=== PATIENT | male | born 1980 | race Caucasian/White ===

== ENCOUNTER 2020-04-22 05:27 | Emergency (ER) | payer OTHER, SELFPAY ==
[2020-04-22] VITALS (52 sets, daily range): BP systolic 130–187; BP diastolic 64–111; PULSE 76–111; RESP 3–26; TEMP 36.6; O2SAT 94–99; BMI 37.3
--- NOTE | 2020-04-22 05:27 | ED_ITS ---
HPI - Chest Pain <Abhijit Garcia DO - Last Filed: 04/22/20 20:35> General Chief Complaint: Chest Pain Stated Complaint: discomfort in chest Time Seen by Provider: 04/22/20 05:27 Source: patient Mode of arrival: Ambulatory Limitations: no limitations History of Present Illness HPI narrative: 39-year-old male smoker with history of hypertension presents with a chief complaint of about 2 hours of retrosternal chest discomfort and burning their reminds him of prior episodes reflux. He took some Zantac at home and it did not help, and normally would so he presents here for further evaluati on given his concern for his heart. He denies any exertional symptoms. He denies radiation of symptoms nor provocation or palliation. . He denies any associated symptoms such as dizziness, weakness or lightheadedness. He has no nausea, vomiting or diaphoresis. He denies recent travel or history of blood clot. MD complaint: chest pain Onset (ago): hour(s) Duration: intermittent Onset: during rest Pain location: substernal Severity: moderate Severity scale (1-10): 6 Quality: sharp Pain radiation: none Relieving factors: nothing Exacerbating factors: nothing Treatments prior to arrival chest pain: none Related Data Previous Rx's Medication Instructions Recorded triamcinolone acetonide 0 gm TOPICAL BID #1 tube 05/28/18 losartan 25 mg tablet 25 mg PO DAILY #90 tab 11/08/19 albuterol sulfate 90 mcg/actuation 2 puff INHALATION Q4HP PRN #1 11/28/19 aerosol inhaler inhalation Allergies Allergy/AdvReac Type Severity Reaction Status Date / Time No Known Drug Allergies Allergy Unverified 07/19/19 11:49 Review of Systems <Abhijit Garcia DO - Last Filed: 04/22/20 20:35> Constitutional Constitutional: Denies chills, Denies fatigue, Denies fever(s), Denies frequent falls, Denies lethargy and Denies weakness Eyes Eyes: Denies change in vision, Denies eye discharge, Denies irritation and Denies loss of vision ENT Ears, Nose, Mouth, and Throat: Denies change in voice, Denies dizziness, Denies neck pain, Denies sore throat and Denies throat swelling Cardiovascular Cardiovascular: Reports chest pain, Denies irregular heart rhythm, Denies lightheadedness, Denies palpitations, Denies dyspnea, Denies dyspnea on exertion and Denies orthopnea Respiratory Respiratory: Denies cough, Denies dyspnea, Denies dyspnea on exertion and Denies wheezing Gastrointestinal Gastrointestinal: Denies abdominal pain, Denies change in bowel habits, Denies diarrhea, Denies nausea and Denies vomiting Musculoskeletal Musculoskeletal: Denies neck pain and Denies numbness Integumentary/Breasts Skin/Breast: Denies pruritus, Denies erythema, Denies rash and Denies wounds Neurologic Neurologic: Denies behavioral changes, Denies confusion, Denies dizziness, Denies frequent falls, Denies loss of vision, Denies numbness and Denies weakness Psychiatric Psychiatric: Denies anxiety, Denies behavioral changes, Denies confusion, Denies depression, Denies homicidal ideation and Denies suicidal ideation Endocrine Endocrine: Denies fatigue, Denies flushing and Denies palpitations Hematologic/Lymphatic Hematologic/Lymphatic: Denies easy bruising Allergic/Immunologic Allergic/Immunologic: Denies urticaria, Denies throat swelling and Denies wheezing Patient History <Abhijit Garcia DO - Last Filed: 04/22/20 20:35> Medical History Mild persistent asthma (Acute) Social History Smoking Status: Current some day smoker Smoking Status: Current some day smoker Exam <Abhijit Garcia DO - Last Filed: 04/22/20 20:35> Narrative Exam Narrative: GENERAL: [39] year old patient appears stated age. Well- nourished, well-developed patient, in mild distress. HEAD: Atraumatic. Normocephalic. EYES: Pupils equal round and reactive. Extraocular motions intact. No scleral icterus. No injection or drainage. ENT: Nose without bleeding, purulent drainage. Throat without erythema, tonsillar hypertrophy or exudate. Airway patent. NECK: Trachea midline. Non tender CARDIOVASCULAR: Regular rate and rhythm without murmurs, gallops, or rubs. RESPIRATORY: Clear to auscultation. Breath sounds equal bilaterally. No wheezes, rales, or rhonchi. GASTROINTESTINAL: Abdomen soft, non-tender, nondistended. EXTREMITIES: No edema or joint tenderness. BACK: Nontender without deformity or crepitance. No flank tenderness. NEURO: AOx3. SKIN: No rash or erythema of visible areas Initial Vital Signs Initial Vital Signs: Vital Signs Temperature 97.8 F 04/22/20 05:35 Pulse Rate 111 H 04/22/20 05:35 Respiratory Rate 04/22/20 05:35 Blood Pressure 178/111 H 04/22/20 05:35 Pulse Oximetry 99 04/22/20 05:35 <Liz Basilio DO - Last Filed: 04/22/20 14:45> Initial Vital Signs Initial Vital Signs: Vital Signs Temperature 97.8 F 04/22/20 05:35 Pulse Rate 111 H 04/22/20 05:35 Respiratory Rate 04/22/20 05:35 Blood Pressure 178/111 H 04/22/20 05:35 Pulse Oximetry 99 04/22/20 05:35 Course <Abhijit Garcia DO - Last Filed: 04/22/20 20:35> Course Course Narrative: patient signed out to Dr. Basilio for final disposition, admission here vs. transfer if second troponin is elevated or clinical picture worsens Orders Ordered: Discontinued Medications Aspirin (Aspirin Chew) 324 mg PO NOW ONE Stop: 04/22/20 05:43 Last Admin: 04/22/20 05:47 Dose: 324 mg Documented by: KRIS Heparin Sodium (Porcine) (Heparin) 5,000 unit IV NOW ONE Stop: 04/22/20 08:47 Last Admin: 04/22/20 09:08 Dose: 5,000 unit Documented by: JÚNIOR Sodium Chloride (Normal Saline 0.9%) 1,000 mls @ 150 mls/hr IV CONT EDDIE Last Infusion: 04/22/20 14:25 Dose: 0 mls/hr Documented by: Admin: 04/22/20 05:48 Dose: 150 mls/hr Documented by: KRIS Heparin Sodium/Dextrose (Heparin Drip) 25,000 unit in 500 mls @ 20 mls/hr IV CONT EDDIE; Protocol Last Titration: 04/22/20 14:25 Dose: 0 units/hr, 0 mls/hr Documented by: Admin: 04/22/20 09:09 Dose: 1,000 units/hr, 20 mls/hr Documented by: JÚNIOR Nitroglycerin (Nitroglycerin) 50 mg in 250 mls @ 1.5 mls/hr IV TITRATE EDDIE; Protocol Last Titration: 04/22/20 14:25 Dose: 0 mcg/min, 0 mls/hr Documented by: Titration: 04/22/20 14:01 Dose: 50 mcg/min, 15 mls/hr Documented by: Titration: 04/22/20 13:50 Dose: 40 mcg/min, 12 mls/hr Documented by: Titration: 04/22/20 13:40 Dose: 35 mcg/min, 10.5 mls/hr Documented by: Titration: 04/22/20 13:20 Dose: 30 mcg/min, 9 mls/hr Documented by: Titration: 04/22/20 13:10 Dose: 25 mcg/min, 7.5 mls/hr Documented by: Titration: 04/22/20 13:05 Dose: 20 mcg/min, 6 mls/hr Documented by: Titration: 04/22/20 12:55 Dose: 15 mcg/min, 4.5 mls/hr Documented by: Titration: 04/22/20 12:40 Dose: 10 mcg/min, 3 mls/hr Documented by: Admin: 04/22/20 12:09 Dose: 5 mcg/min, 1.5 mls/hr Documented by: GLEN Metoprolol Tartrate (Lopressor) 5 mg IV Q5M EDDIE Stop: 04/22/20 06:41 Last Admin: 04/22/20 06:45 Dose: 5 mg Documented by: Admin: 04/22/20 06:40 Dose: 5 mg Documented by: Admin: 04/22/20 06:36 Dose: 5 mg Documented by: KRIS Nitroglycerin (Nitrostat) 0.4 mg SL [id number] PRN PRN Reason: Chest Pain Last Admin: 04/22/20 06:02 Dose: 0.4 mg Documented by: Admin: 04/22/20 05:57 Dose: 0.4 mg Documented by: Admin: 04/22/20 05:48 Dose: 0.4 mg Documented by: KRIS Nitroglycerin (Nitrostat) 0.4 mg SL NOW ONE Stop: 04/22/20 08:51 Last Admin: 04/22/20 09:09 Dose: 0.4 mg Documented by: BTONER Reevaluation(s) Reevaluation #1: pain down to 1/10 after 1 nitro Reevaluation #2: pain now gone Time: 06:56 Consultations Consultation #1: discussed with Dr. Reeves. Requests patient be kept here and ruled out. Trend enzymes, echo today. Stress tomorrow. Vital Signs Vital signs: Vital Signs - 8 hr 04/22/20 12:35 04/22/20 12:40 04/22/20 12:45 Pulse Rate 85 92 H 86 Respiratory Rate 11 L 13 17 Blood Pressure 171/87 H 179/94 H 169/87 H Pulse Oximetry 96 96 95 04/22/20 12:50 04/22/20 12:55 04/22/20 13:00 Pulse Rate 79 77 79 Respiratory Rate 18 16 16 Blood Pressure 167/88 H 173/83 H 178/88 H Pulse Oximetry 95 94 95 04/22/20 13:05 04/22/20 13:10 04/22/20 13:15 Pulse Rate 76 79 94 H Respiratory Rate 17 17 16 Blood Pressure 173/86 H 176/86 H 164/82 H Pulse Oximetry 94 95 95 04/22/20 13:22 04/22/20 13:26 04/22/20 13:30 Pulse Rate 97 H 96 H 89 Respiratory Rate 25 H 12 18 Blood Pressure 185/91 H 154/84 H 154/80 H Pulse Oximetry 97 94 97 04/22/20 13:35 04/22/20 13:40 04/22/20 13:45 Pulse Rate 90 85 86 Respiratory Rate 10 L 12 3 L Blood Pressure 151/74 H 146/68 H 144/70 H Pulse Oximetry 95 95 96 04/22/20 13:50 04/22/20 13:55 04/22/20 14:00 Pulse Rate 92 H 99 H 91 H Respiratory Rate 7 L 15 9 L Blood Pressure 141/64 H 146/78 H 150/70 H Pulse Oximetry 96 96 96 <Liz Basilio DO - Last Filed: 04/22/20 14:45> Orders Ordered: Discontinued Medications Aspirin (Aspirin Chew) 324 mg PO NOW ONE Stop: 04/22/20 05:43 Last Admin: 04/22/20 05:47 Dose: 324 mg Documented by: KRIS Heparin Sodium (Porcine) (Heparin) 5,000 unit IV NOW ONE Stop: 04/22/20 08:47 Last Admin: 04/22/20 09:08 Dose: 5,000 unit Documented by: JÚNIOR Sodium Chloride (Normal Saline 0.9%) 1,000 mls @ 150 mls/hr IV CONT EDDIE Last Infusion: 04/22/20 14:25 Dose: 0 mls/hr Documented by: Admin: 04/22/20 05:48 Dose: 150 mls/hr Documented by: KRIS Heparin Sodium/Dextrose (Heparin Drip) 25,000 unit in 500 mls @ 20 mls/hr IV CONT EDDIE; Protocol Last Titration: 04/22/20 14:25 Dose: 0 units/hr, 0 mls/hr Documented by: Admin: 04/22/20 09:09 Dose: 1,000 units/hr, 20 mls/hr Documented by: JÚNIOR Nitroglycerin (Nitroglycerin) 50 mg in 250 mls @ 1.5 mls/hr IV TITRATE EDDIE; Protocol Last Titration: 04/22/20 14:25 Dose: 0 mcg/min, 0 mls/hr Documented by: Titration: 04/22/20 14:01 Dose: 50 mcg/min, 15 mls/hr Documented by: Titration: 04/22/20 13:50 Dose: 40 mcg/min, 12 mls/hr Documented by: URIELCHECLAUDIA Titration: 04/22/20 13:40 Dose: 35 mcg/min, 10.5 mls/hr Documented by: URIELCHECLAUDIA Titration: 04/22/20 13:20 Dose: 30 mcg/min, 9 mls/hr Documented by: Titration: 04/22/20 13:10 Dose: 25 mcg/min, 7.5 mls/hr Documented by: URIELCHECLAUDIA Titration: 04/22/20 13:05 Dose: 20 mcg/min, 6 mls/hr Documented by: Titration: 04/22/20 12:55 Dose: 15 mcg/min, 4.5 mls/hr Documented by: URIELCHECLAUDIA Titration: 04/22/20 12:40 Dose: 10 mcg/min, 3 mls/hr Documented by: Admin: 04/22/20 12:09 Dose: 5 mcg/min, 1.5 mls/hr Documented by: GLEN Metoprolol Tartrate (Lopressor) 5 mg IV Q5M EDDIE Stop: 04/22/20 06:41 Last Admin: 04/22/20 06:45 Dose: 5 mg Documented by: Admin: 04/22/20 06:40 Dose: 5 mg Documented by: Admin: 04/22/20 06:36 Dose: 5 mg Documented by: KRIS Nitroglycerin (Nitrostat) 0.4 mg SL [id number] PRN PRN Reason: Chest Pain Last Admin: 04/22/20 06:02 Dose: 0.4 mg Documented by: Admin: 04/22/20 05:57 Dose: 0.4 mg Documented by: Admin: 04/22/20 05:48 Dose: 0.4 mg Documented by: KRIS Nitroglycerin (Nitrostat) 0.4 mg SL NOW ONE Stop: 04/22/20 08:51 Last Admin: 04/22/20 09:09 Dose: 0.4 mg Documented by: JÚNIOR Vital Signs Vital signs: Vital Signs - 8 hr 04/22/20 12:35 04/22/20 12:40 04/22/20 12:45 Pulse Rate 85 92 H 86 Respiratory Rate 11 L 13 17 Blood Pressure 171/87 H 179/94 H 169/87 H Pulse Oximetry 96 96 95 04/22/20 12:50 04/22/20 12:55 04/22/20 13:00 Pulse Rate 79 77 79 Respiratory Rate 18 16 16 Blood Pressure 167/88 H 173/83 H 178/88 H Pulse Oximetry 95 94 95 04/22/20 13:05 04/22/20 13:10 04/22/20 13:15 Pulse Rate 76 79 94 H Respiratory Rate 17 17 16 Blood Pressure 173/86 H 176/86 H 164/82 H Pulse Oximetry 94 95 95 04/22/20 13:22 04/22/20 13:26 04/22/20 13:30 Pulse Rate 97 H 96 H 89 Respiratory Rate 25 H 12 18 Blood Pressure 185/91 H 154/84 H 154/80 H Pulse Oximetry 97 94 97 04/22/20 13:35 04/22/20 13:40 04/22/20 13:45 Pulse Rate 90 85 86 Respiratory Rate 10 L 12 3 L Blood Pressure 151/74 H 146/68 H 144/70 H Pulse Oximetry 95 95 96 04/22/20 13:50 04/22/20 13:55 04/22/20 14:00 Pulse Rate 92 H 99 H 91 H Respiratory Rate 7 L 15 9 L Blood Pressure 141/64 H 146/78 H 150/70 H Pulse Oximetry 96 96 96 MDM - Chest Pain <Abhijit Garcia, DO - Last Filed: 04/22/20 20:35> Lab Data Result diagrams: 04/22/20 05:40 04/22/20 05:40 Labs: Lab Results 04/22/20 04/22/20 04/22/20 Range/Units 05:40 05:40 05:40 WBC 10.7 (4.5-11.0) X10^3/uL RBC 4.64 (4.5-5.9) X10^6/uL Hgb 15.8 (13.5-17.5) g/dL Hct 46.3 (41-53) % MCV 99.8 (80-100) fL MCH 34.0 (26-34) PG MCHC 34.1 (30-36) % RDW 15.1 H (11.6-14.8) % Plt Count 334 (150-400) X10^3/uL Neut % (Auto) 79.0 H (50-75) % Lymph % (Auto) 14.0 L (25-40) % [place]pherson % (Auto) 5.1 (3-14) % Eos % (Auto) 1.1 L (2-4) % Baso % (Auto) 0.8 (0-2) % Neut # (Auto) 8500 H (6627-2116) /uL Lymph # (Auto) 1500 (4048-6898) /uL [place] # (Auto) 500 (0-900) /uL Eos # (Auto) 100 (0-450) /uL Baso # (Auto) 100 (0-100) /uL D-Dimer < 200 (<230) ng/mL Sodium 137 (137-145) mmol/L Potassium 3.9 (3.4-5.1) mmol/L Chloride 99 (98-107) mmol/L Carbon Dioxide 29 (22-32) mmol/L BUN 20 (9-20) mg/dL Creatinine 0.90 (0.66-1.25) mg/dL Estimated GFR > 60.0 (>60) mL/min BUN/Creatinine Ratio 22.2 H (6-22) Glucose 140 H (70-100) mg/dL Calcium 9.4 (8.4-10.2) mg/dL Total Bilirubin 0.5 (0.2-1.3) mg/dL AST 62 H (17-59) IU/L ALT 111 H (<50) IU/L Alkaline Phosphatase 76 (38-126) U/L Total Creatine Kinase 268 H (55-170) U/L CK-MB (CK-2) 3.65 H (<2.37) ng/mL CK-MB (CK-2) Rel Index 1.4 L (1.5-5.0) % Troponin I 0.076 H (0.01-0.034) ng/mL Total Protein 8.0 (6.3-8.2) g/dL Albumin 4.5 (3.5-5.0) g/dL Globulin 3.5 (1.7-4.1) g/dL Albumin/Globulin Ratio 1.3 (1.0-2.8) Lipase 133 (23-300) U/L Urine RBC (0-5/HPF) Urine WBC (0-5/HPF) Ur Squamous Epith Cells (0-5/HPF) Urine Bacteria (None) Ur Culture Indicated? U Opiates 300ng/mL cut (Negative) Ur Oxycodone Screen (Negative) Urine Methadone Screen (Negative) Ur Barbiturates Screen (Negative) U Tricyclic Antidepress (Negative) Ur Phencyclidine Scrn (Negative) Ur Amphetamines Screen (Negative) U Methamphetamines Scrn (Negative) Ur MDMA Scrn (Ecstasy) (Negative) U Benzodiazepines Scrn (Negative) Urine Cocaine Screen (Negative) U Marijuana (THC) Screen (Negative) COVID-19 PCR (Negative) 04/22/20 04/22/20 04/22/20 Range/Units 07:40 07:45 07:45 WBC (4.5-11.0) X10^3/uL RBC (4.5-5.9) X10^6/uL Hgb (13.5-17.5) g/dL Hct (41-53) % MCV (80-100) fL MCH (26-34) PG MCHC (30-36) % RDW (11.6-14.8) % Plt Count (150-400) X10^3/uL Neut % (Auto) (50-75) % Lymph % (Auto) (25-40) % Mcpherson % (Auto) (3-14) % Eos % (Auto) (2-4) % Baso % (Auto) (0-2) % Neut # (Auto) (8659-8213) /uL Lymph # (Auto) (8884-0952) /uL Mcpherson # (Auto) (0-900) /uL Eos # (Auto) (0-450) /uL Baso # (Auto) (0-100) /uL D-Dimer (<230) ng/mL Sodium (137-145) mmol/L Potassium (3.4-5.1) mmol/L Chloride (98-107) mmol/L Carbon Dioxide (22-32) mmol/L BUN (9-20) mg/dL Creatinine (0.66-1.25) mg/dL Estimated GFR (>60) mL/min BUN/Creatinine Ratio (6-22) Glucose (70-100) mg/dL Calcium (8.4-10.2) mg/dL Total Bilirubin (0.2-1.3) mg/dL AST (17-59) IU/L ALT (<50) IU/L Alkaline Phosphatase (38-126) U/L Total Creatine Kinase (55-170) U/L CK-MB (CK-2) (<2.37) ng/mL CK-MB (CK-2) Rel Index (1.5-5.0) % Troponin I 0.377 H* (0.01-0.034) ng/mL Total Protein (6.3-8.2) g/dL Albumin (3.5-5.0) g/dL Globulin (1.7-4.1) g/dL Albumin/Globulin Ratio (1.0-2.8) Lipase (23-300) U/L Urine RBC (0-5/HPF) Urine WBC (0-5/HPF) Ur Squamous Epith Cells (0-5/HPF) Urine Bacteria (None) Ur Culture Indicated? U Opiates 300ng/mL cut Negative (Negative) Ur Oxycodone Screen Negative (Negative) Urine Methadone Screen Negative (Negative) Ur Barbiturates Screen Negative (Negative) U Tricyclic Antidepress Negative (Negative) Ur Phencyclidine Scrn Negative (Negative) Ur Amphetamines Screen Negative (Negative) U Methamphetamines Scrn Negative (Negative) Ur MDMA Scrn (Ecstasy) Negative (Negative) U Benzodiazepines Scrn Negative (Negative) Urine Cocaine Screen Negative (Negative) U Marijuana (THC) Screen Negative (Negative) COVID-19 PCR Negative (Negative) 04/22/20 Range/Units 07:45 WBC (4.5-11.0) X10^3/uL RBC (4.5-5.9) X10^6/uL Hgb (13.5-17.5) g/dL Hct (41-53) % MCV (80-100) fL MCH (26-34) PG MCHC (30-36) % RDW (11.6-14.8) % Plt Count (150-400) X10^3/uL Neut % (Auto) (50-75) % Lymph % (Auto) (25-40) % Mcpherson % (Auto) (3-14) % Eos % (Auto) (2-4) % Baso % (Auto) (0-2) % Neut # (Auto) (7944-1667) /uL Lymph # (Auto) (1323-9569) /uL Mcpherson # (Auto) (0-900) /uL Eos # (Auto) (0-450) /uL Baso # (Auto) (0-100) /uL D-Dimer (<230) ng/mL Sodium (137-145) mmol/L Potassium (3.4-5.1) mmol/L Chloride (98-107) mmol/L Carbon Dioxide (22-32) mmol/L BUN (9-20) mg/dL Creatinine (0.66-1.25) mg/dL Estimated GFR (>60) mL/min BUN/Creatinine Ratio (6-22) Glucose (70-100) mg/dL Calcium (8.4-10.2) mg/dL Total Bilirubin (0.2-1.3) mg/dL AST (17-59) IU/L ALT (<50) IU/L Alkaline Phosphatase (38-126) U/L Total Creatine Kinase (55-170) U/L CK-MB (CK-2) (<2.37) ng/mL CK-MB (CK-2) Rel Index (1.5-5.0) % Troponin I (0.01-0.034) ng/mL Total Protein (6.3-8.2) g/dL Albumin (3.5-5.0) g/dL Globulin (1.7-4.1) g/dL Albumin/Globulin Ratio (1.0-2.8) Lipase (23-300) U/L Urine RBC 0-1/hpf (0-5/HPF) Urine WBC 0-1/hpf (0-5/HPF) Ur Squamous Epith Cells 0-1 /hpf (0-5/HPF) Urine Bacteria None seen (None) Ur Culture Indicated? Cult not indicated U Opiates 300ng/mL cut (Negative) Ur Oxycodone Screen (Negative) Urine Methadone Screen (Negative) Ur Barbiturates Screen (Negative) U Tricyclic Antidepress (Negative) Ur Phencyclidine Scrn (Negative) Ur Amphetamines Screen (Negative) U Methamphetamines Scrn (Negative) Ur MDMA Scrn (Ecstasy) (Negative) U Benzodiazepines Scrn (Negative) Urine Cocaine Screen (Negative) U Marijuana (THC) Screen (Negative) COVID-19 PCR (Negative) Urine Dip Bedside Urine Glucose Negative Bedside Urine Bilirubin - Negative Bedside Urine Ketone +/- 5 Urine Specific [place] 1.025 Bedside Urine Occult Blood + Bedside Urine pH 6.0 Bedside Urine Protein ++ 100 Bedside Urine Urobilinogen - Negative Bedside Urine Nitrite - Negative Bedside Urine Leukocytes - Negative Esterase <Liz Basilio, DO - Last Filed: 04/22/20 14:45> Lab Data Attestation: I reviewed the patient's lab results. Labs: Lab Results 04/22/20 04/22/20 04/22/20 Range/Units 05:40 05:40 05:40 WBC 10.7 (4.5-11.0) X10^3/uL RBC 4.64 (4.5-5.9) X10^6/uL Hgb 15.8 (13.5-17.5) g/dL Hct 46.3 (41-53) % MCV 99.8 (80-100) fL MCH 34.0 (26-34) PG MCHC 34.1 (30-36) % RDW 15.1 H (11.6-14.8) % Plt Count 334 (150-400) X10^3/uL Neut % (Auto) 79.0 H (50-75) % Lymph % (Auto) 14.0 L (25-40) % Mcpherson % (Auto) 5.1 (3-14) % Eos % (Auto) 1.1 L (2-4) % Baso % (Auto) 0.8 (0-2) % Neut # (Auto) 8500 H (7594-0574) /uL Lymph # (Auto) 1500 (9310-0803) /uL Mcpherson # (Auto) 500 (0-900) /uL Eos # (Auto) 100 (0-450) /uL Baso # (Auto) 100 (0-100) /uL D-Dimer < 200 (<230) ng/mL Sodium 137 (137-145) mmol/L Potassium 3.9 (3.4-5.1) mmol/L Chloride 99 (98-107) mmol/L Carbon Dioxide 29 (22-32) mmol/L BUN 20 (9-20) mg/dL Creatinine 0.90 (0.66-1.25) mg/dL Estimated GFR > 60.0 (>60) mL/min BUN/Creatinine Ratio 22.2 H (6-22) Glucose 140 H (70-100) mg/dL Calcium 9.4 (8.4-10.2) mg/dL Total Bilirubin 0.5 (0.2-1.3) mg/dL AST 62 H (17-59) IU/L ALT 111 H (<50) IU/L Alkaline Phosphatase 76 (38-126) U/L Total Creatine Kinase 268 H (55-170) U/L CK-MB (CK-2) 3.65 H (<2.37) ng/mL CK-MB (CK-2) Rel Index 1.4 L (1.5-5.0) % Troponin I 0.076 H (0.01-0.034) ng/mL Total Protein 8.0 (6.3-8.2) g/dL Albumin 4.5 (3.5-5.0) g/dL Globulin 3.5 (1.7-4.1) g/dL Albumin/Globulin Ratio 1.3 (1.0-2.8) Lipase 133 (23-300) U/L Urine RBC (0-5/HPF) Urine WBC (0-5/HPF) Ur Squamous Epith Cells (0-5/HPF) Urine Bacteria (None) Ur Culture Indicated? U Opiates 300ng/mL cut (Negative) Ur Oxycodone Screen (Negative) Urine Methadone Screen (Negative) Ur Barbiturates Screen (Negative) U Tricyclic Antidepress (Negative) Ur Phencyclidine Scrn (Negative) Ur Amphetamines Screen (Negative) U Methamphetamines Scrn (Negative) Ur MDMA Scrn (Ecstasy) (Negative) U Benzodiazepines Scrn (Negative) Urine Cocaine Screen (Negative) U Marijuana (THC) Screen (Negative) COVID-19 PCR (Negative) 04/22/20 04/22/20 04/22/20 Range/Units 07:40 07:45 07:45 WBC (4.5-11.0) X10^3/uL RBC (4.5-5.9) X10^6/uL Hgb (13.5-17.5) g/dL Hct (41-53) % MCV (80-100) fL MCH (26-34) PG MCHC (30-36) % RDW (11.6-14.8) % Plt Count (150-400) X10^3/uL Neut % (Auto) (50-75) % Lymph % (Auto) (25-40) % Mcpherson % (Auto) (3-14) % Eos % (Auto) (2-4) % Baso % (Auto) (0-2) % Neut # (Auto) (8989-8299) /uL Lymph # (Auto) (2925-1397) /uL Mcpherson # (Auto) (0-900) /uL Eos # (Auto) (0-450) /uL Baso # (Auto) (0-100) /uL D-Dimer (<230) ng/mL Sodium (137-145) mmol/L Potassium (3.4-5.1) mmol/L Chloride (98-107) mmol/L Carbon Dioxide (22-32) mmol/L BUN (9-20) mg/dL Creatinine (0.66-1.25) mg/dL Estimated GFR (>60) mL/min BUN/Creatinine Ratio (6-22) Glucose (70-100) mg/dL Calcium (8.4-10.2) mg/dL Total Bilirubin (0.2-1.3) mg/dL AST (17-59) IU/L ALT (<50) IU/L Alkaline Phosphatase (38-126) U/L Total Creatine Kinase (55-170) U/L CK-MB (CK-2) (<2.37) ng/mL CK-MB (CK-2) Rel Index (1.5-5.0) % Troponin I 0.377 H* (0.01-0.034) ng/mL Total Protein (6.3-8.2) g/dL Albumin (3.5-5.0) g/dL Globulin (1.7-4.1) g/dL Albumin/Globulin Ratio (1.0-2.8) Lipase (23-300) U/L Urine RBC (0-5/HPF) Urine WBC (0-5/HPF) Ur Squamous Epith Cells (0-5/HPF) Urine Bacteria (None) Ur Culture Indicated? U Opiates 300ng/mL cut Negative (Negative) Ur Oxycodone Screen Negative (Negative) Urine Methadone Screen Negative (Negative) Ur Barbiturates Screen Negative (Negative) U Tricyclic Antidepress Negative (Negative) Ur Phencyclidine Scrn Negative (Negative) Ur Amphetamines Screen Negative (Negative) U Methamphetamines Scrn Negative (Negative) Ur MDMA Scrn (Ecstasy) Negative (Negative) U Benzodiazepines Scrn Negative (Negative) Urine Cocaine Screen Negative (Negative) U Marijuana (THC) Screen Negative (Negative) COVID-19 PCR Negative (Negative) 04/22/20 Range/Units 07:45 WBC (4.5-11.0) X10^3/uL RBC (4.5-5.9) X10^6/uL Hgb (13.5-17.5) g/dL Hct (41-53) % MCV (80-100) fL MCH (26-34) PG MCHC (30-36) % RDW (11.6-14.8) % Plt Count (150-400) X10^3/uL Neut % (Auto) (50-75) % Lymph % (Auto) (25-40) % [place] % (Auto) (3-14) % Eos % (Auto) (2-4) % Baso % (Auto) (0-2) % Neut # (Auto) (4319-5892) /uL Lymph # (Auto) (2650-0272) /uL [place] # (Auto) (0-900) /uL Eos # (Auto) (0-450) /uL Baso # (Auto) (0-100) /uL D-Dimer (<230) ng/mL Sodium (137-145) mmol/L Potassium (3.4-5.1) mmol/L Chloride (98-107) mmol/L Carbon Dioxide (22-32) mmol/L BUN (9-20) mg/dL Creatinine (0.66-1.25) mg/dL Estimated GFR (>60) mL/min BUN/Creatinine Ratio (6-22) Glucose (70-100) mg/dL Calcium (8.4-10.2) mg/dL Total Bilirubin (0.2-1.3) mg/dL AST (17-59) IU/L ALT (<50) IU/L Alkaline Phosphatase (38-126) U/L Total Creatine Kinase (55-170) U/L CK-MB (CK-2) (<2.37) ng/mL CK-MB (CK-2) Rel Index (1.5-5.0) % Troponin I (0.01-0.034) ng/mL Total Protein (6.3-8.2) g/dL Albumin (3.5-5.0) g/dL Globulin (1.7-4.1) g/dL Albumin/Globulin Ratio (1.0-2.8) Lipase (23-300) U/L Urine RBC 0-1/hpf (0-5/HPF) Urine WBC 0-1/hpf (0-5/HPF) Ur Squamous Epith Cells 0-1 /hpf (0-5/HPF) Urine Bacteria None seen (None) Ur Culture Indicated? Cult not indicated U Opiates 300ng/mL cut (Negative) Ur Oxycodone Screen (Negative) Urine Methadone Screen (Negative) Ur Barbiturates Screen (Negative) U Tricyclic Antidepress (Negative) Ur Phencyclidine Scrn (Negative) Ur Amphetamines Screen (Negative) U Methamphetamines Scrn (Negative) Ur MDMA Scrn (Ecstasy) (Negative) U Benzodiazepines Scrn (Negative) Urine Cocaine Screen (Negative) U Marijuana (THC) Screen (Negative) COVID-19 PCR (Negative) Urine Dip Bedside Urine Glucose Negative Bedside Urine Bilirubin - Negative Bedside Urine Ketone +/- 5 Urine Specific [place] 1.025 Bedside Urine Occult Blood + Bedside Urine pH 6.0 Bedside Urine Protein ++ 100 Bedside Urine Urobilinogen - Negative Bedside Urine Nitrite - Negative Bedside Urine Leukocytes - Negative Esterase Imaging Data Chest x-ray: Radiologist's Impression: PROCEDURE: XR CHEST 1V INDICATIONS: chest pain TECHNIQUE: One view of the chest was acquired. COMPARISON: None. FINDINGS: Surgical changes and devices: None. Lungs and pleura: An incomplete inspiratory result is noted, causing a crowded appearance to the lung markings. No focal infiltrates are seen. No pneum othorax or significant pleural effusions are seen. Mediastinum: Mediastinal contours appear normal. Heart size is normal. Bones and chest wall: No suspicious bony lesions. Overlying soft tissues appear unremarkable. IMPRESSION: Limited portable chest examination, without a significant cardiopulmonary abnormality identified. Dictated by: Collin Rodriguez M.D. on 04/22/2020 at 8:36 Approved by: Collin Rodriguez M.D. on 04/22/2020 at 8:36 ECG Data Attestation: I personally reviewed and interpreted this ECG as follows: Prior ECG tracings: available for review Interpretation: EKG 3. Normal sinus rhythm rate [address] changes no T-wave inversions similar to previous EKGs today. MDM Narrative Medical decision making narrative: Patient signed out to me by Dr. Garcia at [facility] [place] evaluated patient myself. Currently resting comfortably awaiting for repeat troponin. 8:54 a.m. lab called with critical troponin of 0.3, in the positive range. Patient states that he is having some mild chest discomfort at this time. Nitro and heparin drip ordered. Urine drug screen still pending. Patient has remote history of cocaine use but denies any recent. 9:18 Dr. reynolds hospitalist at [facility] in patient's symptoms test results agrees with transfer. Waiting for bed and discharge Mom at bedside she requests patient be transferred to [place], unfortunately they are not accepting patients <Liz Basilio, - Last Filed: 04/22/20 14:45> Critical Care Time Critical Care Time: Yes Total Critical Care Time: 30 Attestation: The high probability of a clinically significant, sudden or life threatening deterioration of the [cardiovascular] system(s) required my full and direct attention, intervention and personal management. The aggregate critical care time was 30 minutes. This time is in addition to time spent performing reported procedures but includes the following: [x] Data Review and interpretation [x] Patient assessment and monitoring of vital signs [x] Documentation [x] Medication orders and management Discharge Plan Departure Patient Disposition: [facility] Clinical Impression: Acute non-ST elevation myocardial infarction (NSTEMI) Discharge Date/Time: 04/22/20 14:30 Prescriptions: No Action triamcinolone acetonide 0.1 % cream 0 gm Topical BID Qty: 1 RF: 5 losartan 25 mg tablet 25 mg PO DAILY Qty: 90 RF: 3 albuterol sulfate [Proventil HFA] 90 mcg/actuation HFA aerosol inhaler 2 puff inhalation Q4HP PRN (Reason: shortness of breath) Qty: 1 RF: 1 Referrals: Fito Baker MD [Primary Care Provider] -
[2020-04-22] MEDS: ASPIRIN 81 MG CHEW TAB 324 MG PO (05:47)
[2020-04-22] MEDS: NITROGLYCERIN 0.4 MG SL TAB SL ×4 (05:48→09:09)
[2020-04-22] MEDS: SODIUM CHLORIDE 0.9% 1,000 ML 150 ML IV (05:48)
[2020-04-22 05:55] LABS: Add Manual Diff / Slide Review NO; Basophils Absolute Auto 100 /uL (0-100); Basophils Percent Auto 0.8 % (0-2); Eosinophils Absolute Auto 100 /uL (0-450); Eosinophils Percent Auto 1.1 % (2-4); Hematocrit 46.3 % (41-53); Hemoglobin 15.8 g/dL (13.5-17.5); Lymphocytes Absolute Auto 1500 /uL (1100-4500); Mean Corpuscular HGB Conc 34.1 % (30-36); Mean Corpuscular Volume 99.8 fL (80-100); Monocytes Absolute Auto 500 /uL (0-900); Monocytes Percent Auto 5.1 % (3-14); Neutrophils Absolute Auto 8500 /uL (1500-7000); Platelet Count 334 X10^3/uL (150-400); Red Blood Cell Count 4.64 X10^6/uL (4.5-5.9); Red Cell Distribution Width 15.1 % (11.6-14.8); White Blood Cell Count 10.7 X10^3/uL (4.5-11.0)
[2020-04-22 06:02] LABS: Alanine Aminotransferase 111 IU/L (<50); Albumin 4.5 g/dL (3.5-5.0); Albumin Globulin Ratio 1.3 (1.0-2.8); Alkaline Phosphatase 76 U/L (38-126); Aspartate Aminotransferase 62 IU/L (17-59); BUN Creatinine Ratio 22.2 (6-22); Bilirubin Total 0.5 mg/dL (0.2-1.3); Blood Urea Nitrogen 20 mg/dL (9-20); Calcium 9.4 mg/dL (8.4-10.2); Carbon Dioxide 29 mmol/L (22-32); Chloride 99 mmol/L (98-107); Creatine Kinase 268 U/L (55-170); Estimated Glomerular Filt Rate > 60.0 mL/min (>60); Globulin 3.5 g/dL (1.7-4.1); Glucose 140 mg/dL (70-100); HEMOLYSIS < 15 (0-50); Lipase 133 U/L (23-300); Potassium 3.9 mmol/L (3.4-5.1); Sodium 137 mmol/L (137-145)
[2020-04-22 06:08] LABS: D Dimer < 200 ng/mL (<230)
[2020-04-22 06:14] LABS: Troponin I 0.076 ng/mL (0.01-0.034)
[2020-04-22 06:18] LABS: CKMB % Relative Index 1.4 % (1.5-5.0); Creatine Kinase MB 3.65 ng/mL (<2.37)
[2020-04-22] MEDS: METOPROLOL TARTRATE 5 MG/5 ML INJ IV ×3 (06:36→06:45)
[2020-04-22 08:01] LABS: Bacteria Urine None Seen
[2020-04-22 08:51] LABS: COVID19 -Nasal RAPID Negative (Negative)
[2020-04-22 08:58] LABS: UR Morphine/Opiate cutoff 300 Negative (Negative); Ur Creatinine Normal (Normal); Ur Specific Gravity Normal (Normal); Urine Amphetamines Negative (Negative); Urine Barbiturates Negative (Negative); Urine Benzodiazepines Negative (Negative); Urine Cocaine Negative (Negative); Urine MDMA Negative (Negative); Urine Methadone Negative (Negative); Urine Methamphetamines Negative (Negative); Urine Oxycodone Negative (Negative); Urine Phencyclidine Negative (Negative); Urine Tetrahydrocannabinol Negative (Negative); Urine Tricyclic Antidepressant Negative (Negative); Urine pH Normal (Normal)
--- NOTE | 2020-04-22 09:07 | DI.RAD.S_ITS ---
PROCEDURE: XR CHEST 1V INDICATIONS: chest pain TECHNIQUE: One view of the chest was acquired. COMPARISON: None. FINDINGS: Surgical changes and devices: None. Lungs and pleura: An incomplete inspiratory result is noted, causing a crowded appearance to the lung markings. No focal infiltrates are seen. No pneumothorax or significant pleural effusions are seen. Mediastinum: Mediastinal contours appear normal. Heart size is normal. Bones and chest wall: No suspicious bony lesions. Overlying soft tissues appear unremarkable. IMPRESSION: Limited portable chest examination, without a significant cardiopulmonary abnormality identified. Dictated by: Collin Rodriguez M.D. on 04/22/2020 at 8:36 Approved by: Collin Rodriguez M.D. on 04/22/2020 at 8:36
[2020-04-22] MEDS: HEPARIN 5,000 UNIT/ML VIAL 5000 UNIT IV (09:08)
[2020-04-22] MEDS: HEPARIN DRIP 25,000 UNIT/500 ML IV.SOLN 20 UNIT IV (09:09)
[2020-04-22 09:10] LABS: Culture Indicated Urine Cult Not Indicated; RBC Urine 0-1/HPF (0-5/HPF); Squamous Epithelial Cell Urine 0-1 /HPF (0-5/HPF); WBC Urine 0-1/HPF (0-5/HPF)
[2020-04-22 09:33] LABS: Troponin I 0.377 ng/mL (0.01-0.034)
[2020-04-22] MEDS: NITROGLYCERIN 50 MG/250 ML INFUS..BTL IV (12:09)
== END 2020-04-22 14:30 | disposition short-term general hospital (02) ==
PROVIDERS: Emergency Medicine; Emergency Provider Emergency Medicine; Family Provider Family Medicine; PCP Family Medicine
DX: I21.4 Non-ST elevation (NSTEMI) myocardial infarction (principal); I10 Essential (primary) hypertension
CPT/HCPCS: 36415; 71045; 80053; 80305; 81003; 81015; 82550; 82553; 83690; 84484; 85025; 85379; 87635; 93005; 96365; 96366; 96367; 96375; 99284; J1644

== ENCOUNTER → 2020-12-13 13:21 | Outpatient (CLI) | payer OTHER, SELFPAY ==
[2020-12-13] MEDS: COVID-19 VACC #1, MRNA(MOD) 100 MCG/0.5 ML VIAL IM (13:26)
== END ==
PROVIDERS: Family Provider Family Medicine; PCP Family Medicine; Visit Provider Internal Medicine
DX: Z23 Encounter for immunization (principal)
CPT/HCPCS: 0011A; 91301

== ENCOUNTER → 2022-08-06 13:32 | Outpatient (CLI) | payer OTHER, SELFPAY ==
[2022-08-06 14:48] LABS: Add Manual Diff / Slide Review NO; Basophils Absolute Auto 100 /uL (0-100); Basophils Percent Auto 1.1 % (0-2); Eosinophils Absolute Auto 300 /uL (0-450); Eosinophils Percent Auto 5.5 % (2-4); Hematocrit 42.6 % (41-53); Hemoglobin 14.1 g/dL (13.5-17.5); Lymphocytes Absolute Auto 1700 /uL (1100-4500); Lymphocytes Percent Auto 27.8 % (25-40); Mean Corpuscular HGB Conc 33.1 % (30-36); Mean Corpuscular Hemoglobin 32.8 PG (26-34); Mean Corpuscular Volume 99.1 fL (80-100); Monocytes Absolute Auto 700 /uL (0-900); Monocytes Percent Auto 10.7 % (3-14); Neutrophils Absolute Auto 3400 /uL (1500-7000); Neutrophils Percent Auto 54.9 % (50-75); Platelet Count 299 X10^3/uL (150-400); Red Cell Distribution Width 13.3 % (11.6-14.8); White Blood Cell Count 6.2 X10^3/uL (4.5-11.0)
[2022-08-06 15:12] LABS: Alanine Aminotransferase 64 IU/L (<50); Albumin 4.2 g/dL (3.5-5.0); Albumin Globulin Ratio 1.4 (1.0-2.8); Alkaline Phosphatase 68 U/L (38-126); Aspartate Aminotransferase 36 IU/L (17-59); Bilirubin Total 1.1 mg/dL (0.2-1.3); Blood Urea Nitrogen 20 mg/dL (9-20); Calcium 9.2 mg/dL (8.4-10.2); Carbon Dioxide 24 mmol/L (22-32); Chloride 102 mmol/L (98-107); Cholesterol 205 mg/dL (140-199); Glucose 115 mg/dL (70-100); HDL Cholesterol 36 mg/dL (40-60); HEMOLYSIS < 15 (0-50); LDL Cholesterol Calculated 113 mg/dL (<100); Potassium 4.4 mmol/L (3.4-5.1); Sodium 138 mmol/L (137-145); Total Protein 7.2 g/dL (6.3-8.2); Triglycerides 280 mg/dL (35-150)
[2022-08-06 15:14] LABS: BUN Creatinine Ratio 24.4 (6-22); Estimated Glomerular Filt Rate > 60 mL/min (>60)
[2022-08-06 15:41] LABS: TSH w/ Reflex to FT4 2.39 uIU/mL (0.47-4.68)
[2022-08-06 19:27] LABS: Creatinine Urine Random 462.3 mg/dL; Microalbumi Creatinin Ratio Ur 23.7 ug/mg CR (<30)
== END ==
PROVIDERS: Family Provider Family Medicine; PCP Family Medicine; Referring Provider Internal Medicine Cardiovascular Disease; Visit Provider Internal Medicine Cardiovascular Disease
DX: I25.10 Atherosclerotic heart disease of native coronary artery without angina pectoris (principal); R00.2 Palpitations; E78.2 Mixed hyperlipidemia; I10 Essential (primary) hypertension; Z95.5 Presence of coronary angioplasty implant and graft
CPT/HCPCS: 36415; 80053; 80061; 82043; 82570; 84443; 85025

== ENCOUNTER → 2022-09-11 10:47 | Outpatient (CLI) | payer OTHER, SELFPAY ==
[2022-09-11 11:18] LABS: COVID19 -Nasal RAPID Negative (Negative)
--- NOTE | 2022-09-12 20:01 | DI.NM.S_ITS ---
DATE OF SERVICE: 09/11/2022 PROCEDURE PERFORMED: Exercise treadmill stress and rest myocardial perfusion imaging with gating to assess ejection fraction and regional wall motion. ORDERING PROVIDER: Dr. Gonzalo Reeves. INDICATIONS: The patient is a 41-year-old obese male with a history of PCI to the left circumflex with hyperlipidemia, sleep apnea, and atypical chest discomfort. EXERCISE TREADMILL TESTING: The patient was able to exercise for a total of 8 minutes, 44 seconds on a standard Gigi protocol, suggesting moderately reduced exercise capacity with an ENRIKE of +27%. He had a normal heart rate and blood pressure response to exercise, achieving a maximum heart rate of 175 BPM (98% of his predicted maximum). He had no chest discomfort or anginal symptoms. His resting ECG shows sinus rhythm with occasional PVCs, but normal ST segments. While there is considerable motion artifact, there are no obvious significant ST-segment shifts with stress with occasional isolated PVCs without any obvious complex ventricular ectopy. At 7 minutes, 40 seconds of exercise at a heart rate of 169 BPM, 25.2 millicuries of technetium-99m Myoview was injected and he was imaged 15 minutes later using a quantitative gated SPECT acquisition protocol. The day prior, he had been injected with 26.0 millicuries of technetium-99m Myoview while at rest and was imaged 20 minutes later, again using a gated SPECT acquisition protocol. FINDINGS: 1. Raw data: There is fair myocardial tracer uptake with some evidence for chest wall attenuation. Lung/heart ratio is normal at 0.37 with a normal TID ratio of 0.73. 2. Quantitated gated SPECT: Post-stress ejection fraction is 61% without any focal wall motion abnormality, specifically the inferior wall has normal contractility. The resting ejection fraction is 49% with a mildly increased left ventricular end diastolic volume of 151 mL. There is mildly increased tracer uptake in the right ventricular free wall which can be a indication of a right ventricular overload condition but is nonspecific and clinical correlation is recommended. 3. Myocardial perfusion imaging: Post-stress supine images shows a mild perfusion defect in the inferior wall which essentially resolves on the prone images except for a slight defect in the distal inferior wall, suggesting probable diaphragmatic attenuation artifact. The resting images show a similar perfusion pattern without any obvious improvement. IMPRESSION: 1. Probable normal myocardial perfusion study. 2. Mild fixed inferior wall perfusion defect that essentially resolves on the prone images, most consistent with diaphragmatic attenuation artifact although a small volume of myocardial infarct in the distal inferior wall cannot be entirely excluded, yet the absence of any wall motion abnormality in this area mitigates against this. There is no evidence for any myocardial ischemia. 3. Normal left ventricular systolic function without any focal wall motion abnormality and mildly increased left ventricular volumes. There is mildly increased right ventricular tracer uptake which can be a sign of a right ventricular overload condition, but is nonspecific and clinical correlation is recommended. 4. Moderately reduced exercise capacity without angina or ECG evidence of ischemia. He had isolated PVCs at rest and with stress but no obvious complex ventricular ectopy. William Rai - Jared/adarsh doc#: [id number]/job#: [id number] dd: 09/12/2022 16:37:00 dt: 09/12/2022 18:12:00 DICTATING /COPIES TO: Judd Marcum MD COPIES MNE: NASIR;
== END ==
PROVIDERS: Family Provider Family Medicine; PCP Family Medicine; Referring Provider Internal Medicine Cardiovascular Disease; Visit Provider Internal Medicine Cardiovascular Disease
DX: I25.10 Atherosclerotic heart disease of native coronary artery without angina pectoris (principal); I10 Essential (primary) hypertension; E78.2 Mixed hyperlipidemia; E66.9 Obesity, unspecified; R07.89 Other chest pain; Z95.5 Presence of coronary angioplasty implant and graft; Z20.822 Contact with and (suspected) exposure to COVID-19; Z68.38 Body mass index [BMI] 38.0-38.9, adult
CPT/HCPCS: 78452; 87635; 93017; A9502

== ENCOUNTER → 2022-09-16 13:47 | Outpatient (CLI) | payer OTHER, SELFPAY ==
--- NOTE | 2022-09-16 13:49 | DIET.CONS ---
Dietary Consultation Note Assessment: 42y M attending RD visit for help with morbid obesity and to learn next steps in qualifying for bariatric surgery. Pt wants bariatric surgery for improvement of KIN, HLD, CVD and high BMI. Pt had sleep study (stopped breathing 70x/h) now on CPAP. Pt with [place] in 2019, currently on statin, asprin, losartan and metoprolol. Pt reports he would feel the best at 200#. Pt has not been below 200# since he was a freshman in high school. 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 Pt has worked for [employer] for many years but this is his first sedentary job and is seeing some associated weight gain. Food Recall: usually skips breakfast 20oz cup coffee splash half and half with splenda Lunch at work but not at home: leftovers main meal of day at dinner time (7-8pm):chicken in airfryer, not much beef because of heart, pork chop, acorn squash, green beans or broccoli, salad or 2 eggs with eugene peppers, onions, zucchini Cooks with olive oil or avocado oil, no veggie or canola oil. Dasha: Likes bubble pickett, Celsius, drinks 4x32oz plain water daily. likes rice but doesn't eat it unless brown rice, just not much of it, potatoes once per week Often has 2-3 drinks unless working nights- vodka with diet tonic and chehalis slice. Pt quit smoking after his [place]. Pt has historically had active job, does not like to work out, but is not averse to starting some walking or strength training. Pt has tried low carb diet, exercise, whole food diet, kcal restriction without seeing much change in weight status. Pt has no hx disordered eating- binge/purge/restriction. RD Impression: Pt excellent candidate for bariatric surgery. Pt may be better candidate for RYGB over gastric sleeve r/t GERD hx. Pts current diet healthy and appropriate to support cardiovascular health. Pt has several chronic health conditions that would be improved with significant weight loss including KIN, HTN, HLD, CVD, obesity. Pt at low risk of post-surgical weight regain. Interventions: 1. Reviewed pts diet and lifestyle, reviewed risk factors. 2. Educated pt on types of bariatric surgery, terminal gauger implications and what to expect with recovery. 3. Encouraged pt to start process of pre-approval through insurance which he will do today. Monitoring/Evaluations: This RD happy to follow patient if he needs qualifying weight loss prior to authorization as well as support post-op to optimize nutrition. Electronically Signed by: Lenore Rodriguez 09/16/22 13:49 Clinical Dietitian [address] [address]
== END ==
PROVIDERS: Absent Provider Family Medicine; Family Provider Family Medicine; PCP Family Medicine; Referring Provider Family Medicine; Visit Provider Family Medicine
DX: E66.01 Morbid (severe) obesity due to excess calories (principal); Z71.3 Dietary counseling and surveillance; E78.5 Hyperlipidemia, unspecified; G47.33 Obstructive sleep apnea (adult) (pediatric); Z68.41 Body mass index [BMI] 40.0-44.9, adult
CPT/HCPCS: 97802

== ENCOUNTER → 2022-09-18 07:53 | Outpatient (CLI) | payer OTHER, SELFPAY ==
--- NOTE | 2022-09-18 07:54 | DI.ECHO.S_ITS ---
[facility] +---------+ : : [address] [place] : : : : [id number] : : : : Phone: [phone]+ Echocardiogram Report + + :Name: VIDA DE JESUS Study Date: 09/18/2022 Height: 70 in : :[facility] ReadingLocation: Weight: 265 lb : : Gender: Male BSA: 2.4 m2 : :: 1980 Age: 42 yrs BP: 156/87 mmHg: :Reason For Study: ATHEROSCLEROTIC HEART DISEASE : :Ordering Physician: FILIBERTO, : :RUPERTO Performed By: Lee Ann Fatima : :Referring: RUPERTO DE LOS SANTOS : + + Interpretation Summary 1) Normal left ventricular size and thickness with low normal systolic function (EF 50-55%). 2) Basal to mid inferolateral wall is severely hypokinetic. The anterolateral wall has subtle hypokinesis. 3) Grossly, normal right ventricular size with low normal function., 4) No significant valvular abnormalities. 5) Compared to the Echo done 04/23/2020, anterolateral hypokinesis has improved on this study. Procedure: A two-dimensional transthoracic echocardiogram with color flow and Doppler was performed. The study quality was technically difficult. Comparison is made with the echocardiogram of 04/23/2020. A contrast injection of Definity was performed to improve assessment of LV function. Contrast was injected into an intravenous site in the right arm. A total of 2 cc of contrast was given. The patient was in sinus rhythm with heart rates between 71-86 bpm during the exam. Left Ventricle: The left ventricle is normal in size and wall thickness. The left ventricular ejection fraction is grossly normal. The ejection fraction is estimated to be 50-55%. Basal to mid inferolateral wall is severely hypokinetic. The anterolateral wall has subtle hypokinesis. Right Ventricle: The right ventricle is not well visualized. The right ventricle is grossly normal size. Right ventricular systolic function is at the lower limits of normal. Atria: The left atrial size is normal. Right atrium not well visualized. There is no Doppler evidence for an interatrial shunt. Mitral Valve: The mitral valve is normal in structure and function. There is trace mitral regurgitation. Aortic Valve: There is mild aortic valve sclerosis. The aortic valve is trileaflet. There is no aortic valve stenosis. No aortic regurgitation is present. Tricuspid Valve: The tricuspid valve is normal in structure and function. There is trace tricuspid regurgitation. Pulmonic Valve: The pulmonic valve leaflets are thin and pliable; valve motion is normal. There is trace pulmonic regurgitation. Great Vessels: The aortic root is normal size. The dimensions of the ascending aorta are normal. The IVC is of normal diameter and collapses greater than 50% with a sniff. This suggests a low right atrial pressure of 3 mm Hg. Pericardium/ Pleura There is no pericardial effusion. There is no pleural effusion. MMode/2D Measurements & Calculations LVIDd: 5.9 cm LVOT diam: 2.5 cm LVIDs: 4.9 cm Ao root diam: 3.7 cm FS: 15.7 % asc Aorta Diam: 3.5 cm IVSd: 0.83 cm Ao Arch Diam (Prox Trans): 2.8 cm LVPWd: 0.78 cm LV garcía. diameter/BSA (cm/m^2): 2.5 LV sys. diameter/BSA (cm/m^2): 2.1 LA A2 area: 22.6 cm2 IVC diam: 1.8 cm LA A4 area: 18.6 cm2 LA length (vol): 5.3 cm LA vol: 67.9 ml LA vol index: 28.8 ml/m2 TAPSE: 1.6 cm Doppler Measurements & Calculations Ao V2 max: 135.2 cm/sec LVOT Max Victor Hugo: 76.3 cm/sec Ao V2 mean: 88.1 cm/sec LV V1 max P.3 mmHg Ao max P.3 mmHg LV V1 VTI: 15.5 cm Ao mean P.7 mmHg ADELE(I,D): 2.9 cm2 Ao V2 VTI: 27.2 cm ADELE(V,D): 2.9 cm2 sev ratio: 0.57 ADELE indexed to BSA (cm^2/m^2): 1.2 MV E max victor hugo: 90.1 cm/sec PA V2 max: 88.3 cm/sec MV A max victor hugo: 73.1 cm/sec PA V2 mean: 63.6 cm/sec MV E/A: 1.2 PA mean P.8 mmHg Med Peak E' Victor Hugo: 7.6 cm/sec PA pr(Accel): 41.3 mmHg E/E' med: 11.9 Lat Peak E' Victor Hugo: 11.9 cm/sec E/E' lat: 7.6 E/e' average: 9.8 MV dec time: 0.18 sec SV(LVOT): 78.9 ml Reading Physician:09:43 AM
== END ==
PROVIDERS: Family Provider Family Medicine; PCP Family Medicine; Referring Provider Internal Medicine Cardiovascular Disease; Visit Provider Internal Medicine Cardiovascular Disease
DX: I25.10 Atherosclerotic heart disease of native coronary artery without angina pectoris (principal); I35.8 Other nonrheumatic aortic valve disorders
CPT/HCPCS: 93306; Q9957

== ENCOUNTER → 2022-11-08 11:52 | Outpatient (CLI) | payer OTHER, SELFPAY ==
[2022-11-08 13:41] LABS: Alanine Aminotransferase 52 IU/L (<50); Albumin 4.1 g/dL (3.5-5.0); Albumin Globulin Ratio 1.6 (1.0-2.8); Alkaline Phosphatase 53 U/L (38-126); Aspartate Aminotransferase 32 IU/L (17-59); BUN Creatinine Ratio 18.1 (6-22); Blood Urea Nitrogen 17 mg/dL (9-20); Calcium 8.9 mg/dL (8.4-10.2); Carbon Dioxide 23 mmol/L (22-32); Chloride 105 mmol/L (98-107); Cholesterol 117 mg/dL (140-199); Estimated Glomerular Filt Rate > 60 mL/min (>60); Globulin 2.6 g/dL (1.7-4.1); Glucose 113 mg/dL (70-100); HDL Cholesterol 40 mg/dL (40-60); HEMOLYSIS < 15 (0-50); LDL Cholesterol Calculated 45 mg/dL (<100); Magnesium 1.7 mg/dL (1.6-2.3); Potassium 4.3 mmol/L (3.4-5.1); Sodium 138 mmol/L (137-145); Total Protein 6.7 g/dL (6.3-8.2); Triglycerides 162 mg/dL (35-150)
[2022-11-08 14:54] LABS: Thyroid Stimulating Hormone 1.53 uIU/mL (0.47-4.68)
== END ==
PROVIDERS: Family Provider Family Medicine; PCP Family Medicine; Referring Provider Internal Medicine Cardiovascular Disease; Visit Provider Internal Medicine Cardiovascular Disease
DX: E78.5 Hyperlipidemia, unspecified (principal); I10 Essential (primary) hypertension; I49.3 Ventricular premature depolarization
CPT/HCPCS: 36415; 80053; 80061; 83735; 84443

== ENCOUNTER → 2022-12-04 12:50 | Outpatient (CLI) | payer OTHER, SELFPAY ==
--- NOTE | 2022-12-04 13:53 | DIET.OUTPTC ---
Dietary Outpatient Consultation Note Consultation Date: 12/04/2022 42y M attending RD f/u for help with supplement reccs after bariatric surgery. Pt underwent bariatric surgery 2w ago- gastric sleeve. Pt healing well, attaining goal of 90g protein daily and still on pureed diet. Pt purchased expensive bariatric vitamins but curious if there are other options. Pt current weight 250#, down 11% since last visit where he was 281#. Interventions: Reviewed reccs for post-gastric sleeve vitamin supplementation includinmg calcium 3,000IU Vitamin D3 Multivitamin with iron optional zinc and biotin for hair thinning Helped pt order vitamins and gave reccs to take MVI and half calcium AC and half calcium HS. f/u in 2m to monitor weight loss and support post-bariatric state. Electronically Signed by: Lenore Rodriguez 12/04/22 13:53 Clinical Dietitian [address] [address]
== END ==
PROVIDERS: Family Provider Family Medicine; PCP Family Medicine; Referring Provider Family Medicine; Visit Provider Family Medicine
DX: Z98.84 Bariatric surgery status (principal); Z71.3 Dietary counseling and surveillance
CPT/HCPCS: 97803

== ENCOUNTER → 2023-05-14 09:22 | Outpatient (CLI) | payer OTHER, SELFPAY ==
[2023-05-14 10:19] LABS: Hemoglobin A1C% w Est Avg Glu 4.8 % (4.0-6.0)
[2023-05-14 10:35] LABS: Alanine Aminotransferase 38 IU/L (<50); Albumin Globulin Ratio 1.5 (1.0-2.8); Alkaline Phosphatase 58 U/L (38-126); Aspartate Aminotransferase 27 IU/L (17-59); BUN Creatinine Ratio 21.3 (6-22); Bilirubin Total 1.6 mg/dL (0.2-1.3); Blood Urea Nitrogen 16 mg/dL (9-20); Calcium 9.8 mg/dL (8.4-10.2); Carbon Dioxide 26 mmol/L (22-32); Chloride 100 mmol/L (98-107); Estimated Glomerular Filt Rate > 60 mL/min (>60); Globulin 2.7 g/dL (1.7-4.1); Glucose 101 mg/dL (70-100); HEMOLYSIS < 15 (0-50); Potassium 4.3 mmol/L (3.4-5.1); Sodium 135 mmol/L (137-145); Total Protein 6.7 g/dL (6.3-8.2)
== END ==
PROVIDERS: Family Provider Family Medicine; PCP Family Medicine; Referring Provider Family Medicine; Visit Provider Family Medicine
DX: E78.2 Mixed hyperlipidemia (principal); I10 Essential (primary) hypertension; I25.10 Atherosclerotic heart disease of native coronary artery without angina pectoris; R73.9 Hyperglycemia, unspecified
CPT/HCPCS: 36415; 80053; 83036

== ENCOUNTER → 2023-05-19 09:59 | Outpatient (CLI) | payer OTHER, SELFPAY ==
[2023-05-19 10:19] LABS: Semen Sperm Prescence Post-Vas Absent (ABSENT)
== END ==
PROVIDERS: Family Provider Family Medicine; PCP Family Medicine; Referring Provider Family Medicine; Visit Provider Family Medicine
DX: Z30.2 Encounter for sterilization (principal)
CPT/HCPCS: 89321

== ENCOUNTER → 2023-08-29 11:59 | Outpatient (CLI) | payer OTHER, SELFPAY ==
[2023-08-29 12:36] LABS: Alanine Aminotransferase 42 IU/L (<50); Albumin 4.2 g/dL (3.5-5.0); Albumin Globulin Ratio 1.5 (1.0-2.8); Alkaline Phosphatase 47 U/L (38-126); Aspartate Aminotransferase 35 IU/L (17-59); BUN Creatinine Ratio 21.4 (6-22); Bilirubin Total 1.7 mg/dL (0.2-1.3); Blood Urea Nitrogen 18 mg/dL (9-20); Calcium 9.9 mg/dL (8.4-10.2); Carbon Dioxide 27 mmol/L (22-32); Chloride 100 mmol/L (98-107); Cholesterol 160 mg/dL (140-199); Estimated Glomerular Filt Rate > 60 mL/min (>60); Globulin 2.8 g/dL (1.7-4.1); Glucose 99 mg/dL (70-100); HDL Cholesterol 56 mg/dL (40-60); HEMOLYSIS < 15 (0-50); LDL Cholesterol Calculated 83 mg/dL (<100); Potassium 3.9 mmol/L (3.4-5.1); Sodium 135 mmol/L (137-145); Triglycerides 105 mg/dL (35-150)
== END ==
LOC: LAB 12:02
PROVIDERS: Family Provider Family Medicine; PCP Family Medicine; Referring Provider Internal Medicine Cardiovascular Disease; Visit Provider Internal Medicine Cardiovascular Disease
DX: I25.10 Atherosclerotic heart disease of native coronary artery without angina pectoris (principal); E78.41 Elevated Lipoprotein(a); I10 Essential (primary) hypertension
CPT/HCPCS: 36415; 80053; 80061

== ENCOUNTER → 2024-02-20 09:50 | Outpatient (CLI) | payer OTHER, SELFPAY ==
[2024-02-20 10:18] LABS: Add Manual Diff / Slide Review NO; Basophils Absolute Auto 100 /uL (0-100); Basophils Percent Auto 1.3 % (0-2); Eosinophils Absolute Auto 300 /uL (0-450); Eosinophils Percent Auto 4.8 % (2-4); Hematocrit 42.1 % (41-53); Hemoglobin 14.4 g/dL (13.5-17.5); Lymphocytes Absolute Auto 1800 /uL (1100-4500); Lymphocytes Percent Auto 31.7 % (25-40); Mean Corpuscular HGB Conc 34.1 % (30-36); Mean Corpuscular Hemoglobin 33.9 PG (26-34); Mean Corpuscular Volume 99.4 fL (80-100); Monocytes Absolute Auto 700 /uL (0-900); Monocytes Percent Auto 12.2 % (3-14); Neutrophils Absolute Auto 2800 /uL (1500-7000); Platelet Count 345 X10^3/uL (150-400); Red Blood Cell Count 4.24 X10^6/uL (4.5-5.9); Red Cell Distribution Width 13.7 % (11.6-14.8); White Blood Cell Count 5.6 X10^3/uL (4.5-11.0)
[2024-02-20 10:35] LABS: Alanine Aminotransferase 30 IU/L (<50); Albumin 4.1 g/dL (3.5-5.0); Albumin Globulin Ratio 1.5 (1.0-2.8); Alkaline Phosphatase 77 U/L (38-126); Aspartate Aminotransferase 32 IU/L (17-59); Bilirubin Total 1.2 mg/dL (0.2-1.3); Blood Urea Nitrogen 19 mg/dL (9-20); Calcium 9.5 mg/dL (8.4-10.2); Carbon Dioxide 29 mmol/L (22-32); Chloride 103 mmol/L (98-107); Cholesterol 156 mg/dL (140-199); Estimated Glomerular Filt Rate > 60 mL/min (>60); Globulin 2.8 g/dL (1.7-4.1); Glucose 104 mg/dL (70-100); HDL Cholesterol 58 mg/dL (40-60); HEMOLYSIS < 15 (0-50); LDL Cholesterol Calculated 80 mg/dL (<100); Potassium 4.4 mmol/L (3.4-5.1); Sodium 136 mmol/L (137-145); Total Protein 6.9 g/dL (6.3-8.2); Triglycerides 88 mg/dL (35-150)
[2024-02-20 10:41] LABS: Microalbumin Urine Random 1.1 mg/dL (0-1.6)
[2024-02-20 11:05] LABS: TSH w/ Reflex to FT4 1.78 uIU/mL (0.47-4.68)
[2024-02-21 08:39] LABS: Apolipoprotein B 83 mg/dL (<90)
== END ==
PROVIDERS: Family Provider Family Medicine; PCP Family Medicine; Referring Provider Family Medicine; Visit Provider Family Medicine
DX: Z95.5 Presence of coronary angioplasty implant and graft (principal); I25.10 Atherosclerotic heart disease of native coronary artery without angina pectoris; I10 Essential (primary) hypertension; E78.2 Mixed hyperlipidemia
CPT/HCPCS: 36415; 80053; 80061; 82043; 82172; 82570; 84443; 85025

== ENCOUNTER → 2024-06-21 07:07 | Outpatient (CLI) | payer OTHER, SELFPAY ==
[2024-06-21 09:02] LABS: Alanine Aminotransferase 49 IU/L (<50); Albumin 4.1 g/dL (3.5-5.0); Albumin Globulin Ratio 1.5 (1.0-2.8); Alkaline Phosphatase 47 U/L (38-126); Aspartate Aminotransferase 44 IU/L (17-59); BUN Creatinine Ratio 24.3 (6-22); Bilirubin Total 0.9 mg/dL (0.2-1.3); Blood Urea Nitrogen 18 mg/dL (9-20); Calcium 9.5 mg/dL (8.4-10.2); Carbon Dioxide 30 mmol/L (22-32); Chloride 104 mmol/L (98-107); Estimated Glomerular Filt Rate > 60 mL/min (>60); Globulin 2.7 g/dL (1.7-4.1); Glucose 80 mg/dL (70-100); HEMOLYSIS < 15 (0-50); Potassium 4.4 mmol/L (3.4-5.1); Sodium 138 mmol/L (137-145); Total Protein 6.8 g/dL (6.3-8.2)
[2024-06-23 16:35] LABS: Cholesterol, Total 138 mg/dL (100-199); HDL-Cholesterol 51 mg/dL (>39); HDL-Particle (Total) 36.2 umol/L (>=30.5); LDL Particle 863 nmol/L (<1000); LDL Size 19.7 nm (>20.5); LDL-Cholsterol 62 mg/dL (0-99); LP-IR Score 75 (<=45); Small LDL- Particle 477 nmol/L (<=527); Triglycerides 148 mg/dL (0-149)
== END ==
PROVIDERS: Family Provider Family Medicine; PCP Family Medicine; Referring Provider Internal Medicine Cardiovascular Disease; Visit Provider Internal Medicine Cardiovascular Disease
DX: E78.41 Elevated Lipoprotein(a) (principal); E78.5 Hyperlipidemia, unspecified
CPT/HCPCS: 36415; 80053; 80061; 83704

== ENCOUNTER → 2025-06-21 11:14 | Outpatient (CLI) | payer BC, SELFPAY ==
[2025-06-21 12:11] LABS: Add Manual Diff / Slide Review NO; Hematocrit 45.1 % (41-53); Hemoglobin 15.3 g/dL (13.5-17.5); Lymphocytes Absolute Auto 1500 /uL (1100-4500); Mean Corpuscular HGB Conc 34.0 % (30-36); Mean Corpuscular Hemoglobin 34.0 PG (26-34); Mean Corpuscular Volume 99.9 fL (80-100); Platelet Count 237 X10^3/uL (150-400)
[2025-06-21 12:58] LABS: Alanine Aminotransferase 71 IU/L (<50); Albumin 4.3 g/dL (3.5-5.0); Albumin Globulin Ratio 1.7 (1.0-2.8); Alkaline Phosphatase 52 U/L (38-126); Blood Urea Nitrogen 18 mg/dL (9-20); Calcium 9.3 mg/dL (8.4-10.2); Carbon Dioxide 25 mmol/L (22-32); Chloride 101 mmol/L (98-107); Cholesterol 125 mg/dL (140-199); Estimated Glomerular Filt Rate > 60 mL/min (>60); Globulin 2.6 g/dL (1.7-4.1); Glucose 96 mg/dL (70-99); HDL Cholesterol 57 mg/dL (40-60); HEMOLYSIS < 15 (0-50); Potassium 4.3 mmol/L (3.4-5.1); Sodium 135 mmol/L (137-145); Total Protein 6.9 g/dL (6.3-8.2); Triglycerides 76 mg/dL (35-150)
[2025-06-21 13:25] LABS: TSH w/ Reflex to FT4 1.39 uIU/mL (0.47-4.68)
[2025-06-21 16:30] LABS: Microalbumi Creatinin Ratio Ur 4.0 ug/mg CR (<30)
== END ==
PROVIDERS: PCP Family Medicine; Referring Provider Family Medicine; Visit Provider Family Medicine
DX: Z00.00 Encounter for general adult medical examination without abnormal findings (principal); R73.9 Hyperglycemia, unspecified; Z95.5 Presence of coronary angioplasty implant and graft; I25.10 Atherosclerotic heart disease of native coronary artery without angina pectoris; I10 Essential (primary) hypertension; E78.2 Mixed hyperlipidemia
CPT/HCPCS: 36415; 80053; 80061; 82043; 82570; 84443; 85025